=== PATIENT | male | born 1995 | race Caucasian/White ===

== ENCOUNTER 2024-08-22 22:18 | Emergency (ER) | payer SELFPAY ==
[2024-08-22 22:21] VITALS: BP 150/91
[2024-08-22 22:48] LABS: COVID-19 Antigen Negative (Negative)
[2024-08-23 03:06] VITALS: BP 125/79
--- NOTE | 2024-08-23 05:09 | ED.GENMED ---
History of Present Illness
General
Chief Complaint: Breathing Problem
Source: patient
Time Seen by Provider: 08/23/24 04:54
History of Present Illness
History of Present Illness:
29-year-old male presents to the emergency room complaining of some shortness of breath and congestion. Patient feels some unusual sensation when he is breathing. He was unable to sleep tonight because of it. No fever. Patient denies history of
asthma. He did run 2 miles yesterday and was able to keep his normal pace but did feel a bit more winded than normal.
Past History
Past History
ED Past Medical History: None
Social History
Tobacco: Non-smoker
Personal: Single
Living: with family
Phy Exam
Physical Exam
Physical Exam:
General: Awake, Alert, Oriented X3. No acute distress.
Vitals: unremarkable
Head: Atraumatic
Eyes: Pupils equal, EOMI
Throat: Airway intact, no exudates
Neck: Trachea midline
Lungs: Some expiratory wheezing bilaterally
Heart: Regular rate, no murmurs
Abd: Soft, Nontender, No pulsatile mass
Neuro: Nonfocal
Skin: Warm, dry, no rash
Extremities: pulses equal b/l, no edema
Course
Orders/Labs/Results
Orders:
Orders
08/22/24 22:24
CR Chest - 2 Views Urgent
Comment:
Reason For Exam: cough/congestion
08/22/24 22:28
COVID-19 Antigen Urgent
Source: Nasal Swab
Influenza A+B Rapid Molecular Urgent
JUAN Source: Nasal Swab
Specimen Description:
08/23/24 05:08
Ipratropium/Albuterol Sulfate [Duoneb] 3 ml INH R NOW STA
08/23/24 06:33
Prednisone [Deltasone] 50 mg PO NOW STA
Vital Signs
Initial and Last Documented VS:
Initial Vital Signs
Temp Pulse Resp BP
98.1 F 73 20 150/91
08/22/24 22:21 08/22/24 22:21 08/22/24 22:21 08/22/24 22:21
Last Documented Vital Signs
Temp Pulse Resp BP Pulse Ox
97.7 F 74 16 147/81 96
08/23/24 03:06 08/23/24 07:01 08/23/24 05:27 08/23/24 05:27 08/23/24 07:01
MDM/Problems Addressed
Differential Diagnosis Includes:
Pneumonia, COVID, influenza, bacterial or viral bronchitis
MDM/Problems Addressed:
Patient presents with cough and congestion. Work of breathing is increased. Patient's daily activity is not limited however by the dyspnea. Patient treated with nebs with improvement. Patient stable for discharge home with a prescription for
albuterol metered-dose inhaler and short course of prednisone.
*Radiology
Radiology exam reviewed: preliminary read by ED provider (No acute disease by my interpretation)
*Pulse Oximetry
Patient hypoxic: no
*Critical Care Note
Total Time (30-74mins, 75-104mins- exclusive of procedures): Not Applicable
ED Attending Note
-
Portions of this chart may have been created with voice recognition software.� Occasional wrong word or��sound alike� substitutions may have occurred due to the inherent limitations of voice recognition software.
Discharge Plan
Departure
Patient Disposition: Home (Routine Discharge)
Date of Disposition: 08/23/24
Time of Disposition: 06:32
Patient with high blood pressure during this ER visit?: Yes
Condition: Good
Discharge Problem:
Acute bronchitis
Instructions: Acute Bronchitis, Adult (DC), Wheezing
Prescriptions:
New
albuterol sulfate 90 mcg/actuation HFA aerosol inhaler
2 puff inhalation Q4H PRN (Reason: shortness of breath or wheezing) Qty: 8.5 0RF
prednisone 20 mg tablet
40 mg PO DAILY Qty: 8 0RF
Referrals:
NONE,* [Family Provider] -
Interventions
Interventions:
*Risk Screen - Suicide Last Done: 08/23/24 03:06
*General Assessment Last Done: 08/22/24 22:21
*Neglect/Abuse Screening Last Done: 08/23/24 03:06
ED- Fall Risk Assessment Last Done: 08/23/24 05:30
*ED COVID-19 Vaccine History Last Done: 08/23/24 03:06
*Nursing Disposition Last Done: 08/23/24 07:00
ED- Cardiac Assessment Last Done: 08/23/24 05:30
ED- Pulmonary Assessment Last Done: 08/23/24 05:30
Discharge Date and Time
Discharge Date/Time: 08/23/24 07:00
Print Language: HEBREW
[2024-08-23 05:19] VITALS: BMI 32.0
[2024-08-23] MEDS: DUONEB 3 ML INH (05:21)
[2024-08-23 05:27] VITALS: BP 147/81
[2024-08-23] MEDS: DELTASONE 50 MG PO (07:00)
== END 2024-08-23 07:00 | disposition home or self-care (01) ==
LOC: EMR 22:18
PROVIDERS: Student in an Organized Health Care Education/Training Program; EMERGENCY PHYSICIAN Emergency Medicine
DX: J20.9 Acute bronchitis, unspecified (principal)
CPT/HCPCS: 99283; 94640; 71046; 87502; 87811